=== PATIENT | male | born 1990 | race Caucasian/White ===

== ENCOUNTER 2023-09-11 22:17 | Emergency (ER) | payer BC ==
[~2023-09-11] VITALS: Ht 180.3 cm; Wt 108.9 kg
[2023-09-11 22:28] VITALS: BP_SYST 131; PULSE 107; RESP 16; TEMP 98.1; O2SAT 97
[2023-09-11 22:31] VITALS: BP_SYST 148; PULSE 99; RESP 18; TEMP 98.1; O2SAT 94
[2023-09-11] MEDS ORDERED: SULF1TAB48 PO (23:18)
== END 2023-09-11 23:35 | disposition home or self-care (01) ==
LOC: SED 22:17
DX: T81.30XA Disruption of wound, unspecified, initial encounter (principal); Z79.899 Other long term (current) drug therapy
CPT/HCPCS: 99283